=== PATIENT | female | born 1955 | race African-American/Black ===

== ENCOUNTER 2022-03-20 14:53 | Emergency (ER) | payer BC, SELFPAY ==
[2022-03-20 14:57] VITALS: BP 199/107; PULSE 74; RESP 18; O2SAT 98; BMI 34.1
--- NOTE | 2022-03-20 15:04 | ECG_ITS ---
Test Reason : hypertention Blood Pressure : / mmHG Vent. Rate : 073 BPM Atrial Rate : 073 BPM P-R Int : 158 ms QRS Dur : 104 ms QT Int : 418 ms P-R-T Axes : 066 -11 027 degrees QTc Int : 460 ms Normal sinus rhythm Incomplete right bundle branch block Borderline ECG No previous ECGs available Referred By: Generic ED Physician Electronically Signed By:DWIGHT SOUZA
[2022-03-20 15:15] LABS: MANUAL DIFF FLAG NO
[2022-03-20 15:19] LABS: Basophils Absolute Auto 0.1 X10*3/uL (0.0-0.2); Basophils Percent Auto 0.8 % (0-2); Eosinophils Absolute Auto 0.1 X10*3/uL (0.0-0.4); Eosinophils Percent Auto 1.3 % (0-4); Hematocrit 40.3 % (37.0-47.0); Hemoglobin 13.4 g/dl (12.0-16.0); Imm Gran Abs Auto 0.02 X10*3/uL (0.00-0.03); Imm Gran Pct Auto 0.3 % (0.0-0.4); Lymphocytes Absolute Auto 2.7 X10*3/uL (1.2-4.9); Lymphocytes Percent Auto 43.1 % (20-40); Mean Corpuscular HGB Conc 33.3 g/dl (31.0-35.0); Mean Corpuscular Hemoglobin 27.7 pg (27.0-33.0); Mean Corpuscular Volume 83.4 fL (80.0-98.0); Mean Platelet Volume 10.1 fL (9.4-12.3); Monocytes Absolute Auto 0.5 X10*3/uL (0.1-1.2); Neutrophils Absolute Auto 2.9 x10*3/uL (2.0-8.3); Neutrophils Percent Auto 46.5 % (45-73); Platelet Count 249 X10*3/uL (160-400); Red Blood Count 4.83 X10*6/uL (4.20-5.50); Red Cell Distribution Width 14.2 % (11.0-16.0); White Blood Count 6.2 X10*3/uL (4.8-10.8)
[2022-03-20 15:31] LABS: Anion Gap 14 (12-20); Blood Urea Nitrogen 15 mg/dL (9-16); Calcium 9.8 mg/dL (8.4-10.2); Carbon Dioxide 29 mmol/L (22-29); Chloride 103 mmol/L (96-108); Creatinine Clr Calc Pharmacy 69.6; Estimated Glomerular Filt Rate 58; Glucose Random 114 mg/dL (60-115); Potassium 4.1 mmol/L (3.3-5.1); Sodium 142 mmol/L (135-145)
[2022-03-20 20:51] VITALS: BP 189/89; PULSE 59; RESP 16; O2SAT 98
--- NOTE | 2022-03-20 23:03 | ED.GENADULT ---
HPI - General Adult General Chief complaint: General Medical Stated complaint: possible stroke, High bp Time Seen by Provider: 03/20/22 16:48 History of Present Illness HPI narrative: Patient is a 67-year-old female presented today with having history of hypertension. Patient baseline is on lisinopril 10 mg. Had her blood pressure checked yesterday. Noted to have an elevated blood pressure. Patient was given hydrochlorothiazide 25 mg. Took 1 dose of the medication last night. Subsequently had some nausea vomiting. This symptom has since resolved. Patient sent in for further evaluation because of the elevated blood pressure. Patient denies any fever chills. No focal weakness. No nausea no vomiting no headache today. No symptoms. Patient was noted to have elevated blood pressure. No chest pain or shortness of breath. No dizziness. Related Data Allergies Allergy/AdvReac Type Severity Reaction Status Date / Time latex Allergy Itching Verified 03/20/22 15:03 Review of Systems Review of Systems: No coughing or congestion or upper respiratory symptoms No chest pain All system reviewed otherwise negative [facility] Past Medical History Attestation statement: The following information was validated with the patient. Social History Social History Advance Directives: No Physical Exam ED Vital Signs: Vital Signs - 24 hr 03/20/22 14:57 03/20/22 20:51 03/21/22 00:00 Pulse Rate 74 59 Respiratory Rate 18 16 Blood Pressure 199/107 H 189/89 H 201/93 H Pulse Oximetry 98 98 Oxygen Delivery Method Room Air Room Air 03/21/22 00:05 Pulse Rate Respiratory Rate Blood Pressure 174/71 H Pulse Oximetry Oxygen Delivery Method BMI result Body Mass Index 34.1 Appearance: Alert. Oriented X3. No acute distress. Eyes: Pupils equal, round and reactive to light. ENT: Pharynx normal. Neck: Normal inspection. Neck supple. No lymph nodes noted. No crepitus CVS: Normal heart rate and rhythm. Pulses normal. Normal S1 and S2 Respiratory: No respiratory distress. Breath sounds normal. No Wheezing. No rales Abdomen: Soft and nontender. No rigidity. No distention. good BS x4 Skin: Skin warm and dry. Normal skin color. Normal skin turgor. Extremities: No lower extremity edema. Neurovascular intact to all extremities. No Lacerations. No Rash Neuro: Oriented X 3. No motor deficit. No sensory deficit. Moving all extermities. No slurred speech Medical Decision Making MDM Narrative Medical decision making narrative: EKG showed a sinus pattern heart rate was 80 MI QRS QT within normal limits there is no acute ST segment elevation. Electrolytes are unremarkable. Patient's CBCs normal. Blood pressure is initially 180/90. Patient's did not take her blood pressure medication today. She took a 10 mg tablet of lisinopril and 25 mg of hydrochlorothiazide in front of me. Will monitor her blood pressure for the next hour. Will have patient closely follow-up. Blood pressure improved with home medication. Patient in stable condition. Will discharge home. Close follow-up advised. Lab Data Result diagrams: 03/20/22 15:10 03/20/22 15:10 Labs: Lab Results 03/20/22 03/20/22 Range/Units 15:10 15:10 WBC 6.2 (4.8-10.8) X10*3/uL RBC 4.83 (4.20-5.50) X10*6/uL Hgb 13.4 (12.0-16.0) g/dl Hct 40.3 (37.0-47.0) % MCV 83.4 (80.0-98.0) fL MCH 27.7 (27.0-33.0) pg MCHC 33.3 (31.0-35.0) g/dl RDW 14.2 (11.0-16.0) % Plt Count 249 (160-400) X10*3/uL MPV 10.1 (9.4-12.3) fL Immature Gran % (Auto) 0.3 (0.0-0.4) % Neut % (Auto) 46.5 (45-73) % Lymph % (Auto) 43.1 H (20-40) % [place] % (Auto) 8.0 (2-11) % Eos % (Auto) 1.3 (0-4) % Baso % (Auto) 0.8 (0-2) % Lymph # (Auto) 2.7 (1.2-4.9) X10*3/uL [place] # (Auto) 0.5 (0.1-1.2) X10*3/uL Eos # (Auto) 0.1 (0.0-0.4) X10*3/uL Baso # (Auto) 0.1 (0.0-0.2) X10*3/uL Abs Immat Gran (auto) 0.02 (0.00-0.03) X10*3/uL Absolute Neuts (auto) 2.9 (2.0-8.3) x10*3/uL Absolute Nucleated RBC 0.000 (0.0-0.012) X10*3/uL Nucleated RBC % (auto) 0.0 (0.0-0.2) /100WBC Sodium 142 (135-145) mmol/L Potassium 4.1 (3.3-5.1) mmol/L Chloride 103 (96-108) mmol/L Carbon Dioxide 29 (22-29) mmol/L Anion Gap 14 (12-20) BUN 15 (9-16) mg/dL Creatinine 0.96 (0.5-1.4) mg/dL Estim Creat Clear Calc 69.6 Estimated GFR 58 Random Glucose 114 (60-115) mg/dL Calcium 9.8 (8.4-10.2) mg/dL Discharge Plan Discharge Clinical Impression: Hypertension Patient Disposition: Home, Self-Care Instructions: Hypertension (ED) Referrals: Physician,Unknown J [Primary Care Provider] - (Your blood pressure was extremely elevated today. Please closely follow-up with your doctor tomorrow for repeat blood pressure check.)
[2022-03-21 00:05] VITALS: BP 174/71
== END 2022-03-21 00:12 | disposition home or self-care (01) ==
PROVIDERS: Emergency Provider Emergency Medicine Emergency Medical Services
DX: R42 Dizziness and giddiness (principal); I10 Essential (primary) hypertension; R11.2 Nausea with vomiting, unspecified; Z79.899 Other long term (current) drug therapy
CPT/HCPCS: 36415; 80048; 85025; 93005; 99283; 99284

== ENCOUNTER 2023-04-01 01:27 | Emergency (ER) | payer BC, SELFPAY ==
--- NOTE | 2023-04-01 | ECG_ITS ---
Test Reason : DIZZINES/TACHY Blood Pressure : / mmHG Vent. Rate : 131 BPM Atrial Rate : 141 BPM P-R Int : 000 ms QRS Dur : 092 ms QT Int : 312 ms P-R-T Axes : 000 -04 029 degrees QTc Int : 460 ms Sinus tachycardia with 2nd degree A-V block (Mobitz I) Incomplete right bundle branch block Inferior infarct , age undetermined Anterior infarct , age undetermined Abnormal ECG When compared with ECG of 20-MAR-2022 15:04, Sinus rhythm is now with 2nd degree A-V block (Mobitz I) Vent. rate has increased BY 58 BPM Anterior infarct is now Present Inferior infarct is now Present Referred By: Generic ED Physician Electronically Signed By:DWIGHT SOUZA
--- NOTE | ~2023-04-01 | XR_ITS ---
EXAMINATION: XR CHEST CLINICAL INFORMATION: Shortness of breath, rule out CHF versus pneumonia COMPARISON: None available. TECHNIQUE: Frontal view of the chest was obtained. FINDINGS: Lungs appear mildly hypoinflated. No focal consolidation is seen. No evidence of pneumothorax, significant pleural effusion, or overt pulmonary edema. Cardiac silhouette appears somewhat prominent though may be accentuated by low lung volumes. Degenerative changes are noted in the spine. XR/XR chest 1V IMPRESSION: No acute cardiopulmonary findings.
[2023-04-01 01:31] VITALS: BP 108/74; PULSE 133; RESP 16; TEMP 36.3; O2SAT 97; BMI 36.3
[2023-04-01 01:57] LABS: Basophils Absolute Auto 0.1 X10*3/uL (0.0-0.2); Eosinophils Absolute Auto 0.3 X10*3/uL (0.0-0.4); Eosinophils Percent Auto 5.2 % (0-4); Hematocrit 38.9 % (37.0-47.0); Imm Gran Abs Auto 0.01 X10*3/uL (0.00-0.03); Imm Gran Pct Auto 0.2 % (0.0-0.4); Lymphocytes Absolute Auto 2.7 X10*3/uL (1.2-4.9); Lymphocytes Percent Auto 46.4 % (20-40); MANUAL DIFF FLAG NO; Mean Corpuscular HGB Conc 33.4 g/dl (31.0-35.0); Mean Corpuscular Volume 83.7 fL (80.0-98.0); Mean Platelet Volume 9.8 fL (9.4-12.3); Monocytes Absolute Auto 0.6 X10*3/uL (0.1-1.2); Monocytes Percent Auto 10.2 % (2-11); Neutrophils Absolute Auto 2.2 x10*3/uL (2.0-8.3); Platelet Count 264 X10*3/uL (160-400); Red Blood Count 4.65 X10*6/uL (4.20-5.50); Red Cell Distribution Width 14.5 % (11.0-16.0); White Blood Count 5.8 X10*3/uL (4.8-10.8)
[2023-04-01 01:58] LABS: Appearance Urine Clear; Color Urine Yellow; Glucose Urine UA Negative (Negative); Leukocyte Esterase Urine Negative (Negative); Nitrite Urine Negative (Negative); PH 5.5 (5.0-9.0); UMIC TRIGGER UACC YES; Urine Blood Small (1+) (Negative); Urine Ketones Negative (Negative); Urine Protein Negative (Neg-Trace)
[2023-04-01 01:59] VITALS: BP 112/89; PULSE 119; RESP 19; TEMP 36.6; O2SAT 95
[2023-04-01 02:02] LABS: INTERNATIONAL NORM RATIO 0.9 (0.9-1.1); Prothrombin Time 11.3 SEC (11.1-13.3)
--- NOTE | 2023-04-01 02:05 | ED_ITS ---
HPI - Dizziness General Chief Complaint: Dizziness Stated Complaint: Palpitations/Dizziness Time Seen by Provider: 04/01/23 01:49 Source: patient Mode of arrival: ambulatory Limitations: no limitations History of Present Illness HPI Narrative: 68-year-old female who presents emergency department for evaluation of lightheadedness, dizziness and palpitations. 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 She then had a sudden onset of feeling lightheaded his she was going to pass out. She needed to sit down. She then felt a pounding sensation in her neck. She was concerned about her symptoms so she drove to the emergency department for evaluation. Patient states that she has had palpitations in the past but never severe symptoms like today symptoms which made her feel like she was going to pass out. She complained of rhinorrhea, occasional cough productive of thick mucus and mild dyspnea on exertion over the past 1-2 days. She denied fever, chills, sore throat nausea, vomiting, diarrhea, frequency, dysuria, black stools, dark stools, myalgias or arthralgias. She states that she saw her doctor yesterday, she told her doctor about pain that she had in her right leg 2 months prior, this pain lasted 3 days and then resolved. Related Data Allergies Allergy/AdvReac Type Severity Reaction Status Date / Time latex Allergy Itching Verified 03/20/22 15:03 Review of Systems 2 Review of Systems: Yes all other systems are reviewed and are negative [facility] Past Medical History [facility] Narrative: Past medical history hypertension, asthma. Surgical history: None. Social history: She works at the post office. She denies tobacco, alcohol and drug use. Social History Social History Alcohol intake: never Smoked in Last 30 Days: No Use of substances other than those prescribed or required for medical reasons: No Advance Directives: No Advance Directives Information Provided: No Physical Exam 2 Vital Signs: Vital Signs: Last Vital Signs Temp 97.9 F 04/01/23 01:59 Pulse 119 H 04/01/23 01:59 Resp 19 04/01/23 01:59 BP 112/89 04/01/23 01:59 Pulse Ox 95 04/01/23 01:59 O2 Del Method Room Air 04/01/23 01:59 BMI result Body Mass Index 36.3 Vital signs revealed an elevated heart rate varying from 119-140 beats per minute Exam: General: Awake, alert in no distress Head: Normocephalic, atraumatic EENT: PERRL, Lids normal, sclera normal, conjunctiva normal, nose normal , ears normal, throat without erythema or exudates Neck: Supple, no adenopathy, trachea midline and nontender Lung: breath sounds symmetric, no wheezing, rales or rhonchi Chest: symmetric movement, nontender Heart: Rapid rate and regular with occasionally irregular rhythm, normal S1, S2 no murmurs or rubs Abdomen: soft, non-tender, nondistended, normal bowel sounds Back: no vertebral tenderness, no CVAT Extremities: no deformities, moves all extremities symmetrically Skin: no rashes, no lesion, normal color and warmth Neuro: Awake, alert, oriented, normal speech, cranial nerves intact, moves all extremities symmetrically Psych: Pleasant, cooperative Medications Administered Discontinued Medications Generic Name Dose Route Start Last Admin Trade Name Freq PRN Reason Stop Dose Admin Diltiazem HCl 20 mg 04/01/23 02:15 04/01/23 02:17 Diltiazem Hcl 50 Mg/10 Ml Vial IVPUSH 04/01/23 02:16 20 mg STAT STA Administration Sodium Chloride 1,000 mls @ 999 mls/hr 04/01/23 02:00 04/01/23 02:16 Ns IV 04/01/23 03:00 999 mls/hr .Q1H1M STA Administration Medical Decision Making Medical Decision Making [facility] Narrative: 68-year-old female history of hypertension and asthma who presents emergency department for evaluation of dizziness/near syncope with palpitations. Symptoms came on suddenly while she was at work. On presentation, patient was found to have a tachycardia 120-140 beats per minute. Her rhythm was mainly regular with occasional irregular pattern. Following evaluation was ordered: CBC, BMP, liver panel, lipase, PT/INR, TSH with reflex T4, BNP, chest x-ray, EKG. I ordered diltiazem 20 mg IV push 0358: The patient's laboratory evaluation was unremarkable. The patient did convert to normal sinus rhythm after receiving IV diltiazem. I will start the patient on aspirin 81 mg once a day Patient will be referred to her PCP for follow-up to Cardiology and I also gave her our on-call cardiology number for re-evaluation and further workup of atrial fibrillator in the event that she cannot be referred to Cardiology through her PCP. Differential Diagnosis Differential Diagnoses: The differential diagnosis associated with the presentation includes Differential diagnosis includes was not limited to myocardial infarction, myocardial ischemia, palpitations, sinus tachycardia , atrial flutter, atrial fibrillator, hyperthyroidism, electrolyte abnormalities, any Admission/Observation Consideration of admission/observation: Escalation of care including admission/observation considered Lab Data MDM Lab Attestation statement: I reviewed the patient's lab results. My independent interpretation patient's laboratory evaluation as follows: CBC was normal . PT/INR PTT were normal. BUN was elevated with a normal creatinine of 1.13. Urinalysis revealed 1+ blood, microscopic revealed 0-2 RBCs, 0-5 WBCs, no bacteria. Urine tox screen was normal. TSH was normal at 1.70 point. BMP was normal 04/01/23 01:52 04/01/23 01:52 Labs: Lab Results 04/01/23 Range/Units 01:52 WBC 5.8 (4.8-10.8) X10*3/uL RBC 4.65 (4.20-5.50) X10*6/uL Hgb 13.0 (12.0-16.0) g/dl Hct 38.9 (37.0-47.0) % MCV 83.7 (80.0-98.0) fL MCH 28.0 (27.0-33.0) pg MCHC 33.4 (31.0-35.0) g/dl RDW 14.5 (11.0-16.0) % Plt Count 264 (160-400) X10*3/uL MPV 9.8 (9.4-12.3) fL Immature Gran % (Auto) 0.2 (0.0-0.4) % Neut % (Auto) 37.0 L (45-73) % Lymph % (Auto) 46.4 H (20-40) % [place] % (Auto) 10.2 (2-11) % Eos % (Auto) 5.2 H (0-4) % Baso % (Auto) 1.0 (0-2) % Lymph # (Auto) 2.7 (1.2-4.9) X10*3/uL [place] # (Auto) 0.6 (0.1-1.2) X10*3/uL Eos # (Auto) 0.3 (0.0-0.4) X10*3/uL Baso # (Auto) 0.1 (0.0-0.2) X10*3/uL Abs Immat Gran (auto) 0.01 (0.00-0.03) X10*3/uL Absolute Neuts (auto) 2.2 (2.0-8.3) x10*3/uL Absolute Nucleated RBC 0.000 (0.0-0.012) X10*3/uL Nucleated RBC % (auto) 0.0 (0.0-0.2) /100WBC PT 11.3 (11.1-13.3) SEC INR 0.9 (0.9-1.1) APTT 35.3 (26.0-36.4) SEC Sodium 141 (135-145) mmol/L Potassium 3.8 (3.3-5.1) mmol/L Chloride 104 (96-108) mmol/L Carbon Dioxide 25 (22-29) mmol/L Anion Gap 16 (12-20) BUN 29 H (9-16) mg/dL Creatinine 1.13 (0.5-1.4) mg/dL Estim Creat Clear Calc 60.2 Estimated GFR 48 Random Glucose 102 (60-115) mg/dL Calcium 9.6 (8.4-10.2) mg/dL Total Bilirubin 0.3 (0.0-1.0) mg/dL Direct Bilirubin 0.1 (0.0-0.5) mg/dL AST 28 (5-31) U/L ALT 21 (0-31) U/L Alkaline Phosphatase 49 (39-117) U/L Troponin I High Sens 7.8 (<3.5-17.0) ng/L B-Natriuretic Peptide 11 (<100) pg/mL Total Protein 8.0 (6.5-8.0) g/dL Albumin 4.3 (3.5-5.0) g/dL Lipase 23 (8-78) U/L TSH 1.70 (0.32-4.0) uIU/mL Urine Color Yellow Urine Appearance Clear Urine pH 5.5 (5.0-9.0) Ur Specific [place] 1.010 (1.005-1.025) Urine Protein Negative (Neg-Trace) mg/dL Urine Glucose (UA) Negative (Negative) mg/dL Urine Ketones Negative (Negative) mg/dL Urine Blood Small (1+) H (Negative) Urine Nitrite Negative (Negative) Ur Leukocyte Esterase Negative (Negative) Urine RBC 0-2 (0-2) /HPF Urine WBC 0-5 (0-5) /HPF Ur Squamous Epith Cells 0-2 (0-2) /HPF Urine Bacteria None Seen (None Seen) Hyaline Casts 0-2 (0-2) /LPF Urine Opiates Screen Not Detected (Not Detect) Urine Fentanyl Screen Not Detected (Not Detect) Ur Barbiturates Screen Not Detected (Not Detect) Ur Phencyclidine Scrn Not Detected (Not Detect) Ur Amphetamines Screen Not Detected (Not Detect) U Benzodiazepines Scrn Not Detected (Not Detect) Urine Cocaine Screen Not Detected (Not Detect) U Marijuana (THC) Screen Not Detected (Not Detect) Independent Interpretation I performed an independent interpretation of an: EKG and Plain X-Ray Interpretation: My independent interpretation of the patient's 12 EKG done at 0143: Atrial fibrillation with a ventricular rate of 131, normal QRS and QTC interval, no ST segment elevation, no ST segment depression, incomplete right bundle-branch block,, nonspecific T-wave abnormalities. Compared to EKG dated 03/20/2022,at that time she was in a sinus rhythm with a rate of 73, incomplete right bundle- branch block was present on the previous EKG. My independent interpretation of the patient's 12 EKG done at 02:44 hours is as follows: Normal sinus rhythm with a first-degree AV block with a IL interval of 260 milliseconds, prolonged QRS of 106 milliseconds, incomplete right bundle- branch block, Q-wave in lead 3, poor R-wave progression, no ST segment elevation, no ST segment depression, no significant T-wave abnormalities, no PACs or PVCs. My independent interpretation patient's one-view chest x-ray is as follows: No acute infiltrate, no pulmonary edema Radiology Impression Discussion of test interpretation with radiology: I have reviewed the radiologist's reading. Radiologist Impression: XR chest 1V IMPRESSION: No acute cardiopulmonary findings. Dictated By: Jamal De La Cruz MD Critical Care Time Critical Care Time Critical Care Time: Yes Total Critical Care Time: 35 Attestation: Critical Care: The patient was critically ill with a high probability of imminent or life threatening deterioration. I spent greater than 30 minutes of discontinuous time evaluating the patient,delivering critical care at the bedside, secondary to received IV diltiazem for atrial fibrillation with RVR, required cardiac and O2 saturation monitoring . Critical care time does not include time spent performing separately billable procedures or teaching. Total time spent performing critical care was 35 minutes. Discharge Plan Discharge Clinical Impression: Near syncope, Paroxysmal atrial fibrillation with RVR Patient Disposition: Home, Self-Care Instructions: A-fib (Atrial Fibrillation) (ED) Additional Instructions: Your initial EKG was consistent with atrial fibrillation with a rapid ventricular rate 120-140 beats per minute. Your treated with diltiazem times IV and shortly after receiving this medicine you spontaneously converted back to a sinus rhythm. Your blood work was normal including a normal TSH (thyroid function test), normal PT/INR, PTT non elevated troponin and normal BNP. Your chest x-ray was normal pain. Take 1 enteric-coated 81 mg aspirin per day. Call your primary care doctor for referral to a litigation legal secretary for further evaluation of your atrial fibrillation. If your doctor cannot refer you to a litigation legal secretary and call our on-call litigation legal secretary Dr. Shrestha for evaluation of your atrial fibrillation Follow-up with your doctor in 2 days. Please return to the emergency department if your symptoms get worse or if you develop any symptoms that are concerning to you. Referrals: Jack Shrestha MD [Physician] - 1 week (New onset atrial fibrillator with RVR, spontaneously converted after receiving diltiazem)
[2023-04-01 02:11] LABS: Bacteria Urine None Seen (None Seen); Hyaline Casts Urine 0-2 /LPF (0-2); Partial Thromboplastin Time 35.3 SEC (26.0-36.4); RBC Urine 0-2 /HPF (0-2); Squamous Epithelial Cell Urine 0-2 /HPF (0-2); WBC Urine 0-5 /HPF (0-5)
--- NOTE | 2023-04-01 02:14 | ECG_ITS ---
Test Reason : TACHY Blood Pressure : / mmHG Vent. Rate : 069 BPM Atrial Rate : 069 BPM P-R Int : 216 ms QRS Dur : 106 ms QT Int : 408 ms P-R-T Axes : -08 -07 007 degrees QTc Int : 437 ms Sinus rhythm with 1st degree A-V block Incomplete right bundle branch block Inferior infarct (cited on or before 01-APR-2023) Anterior infarct (cited on or before 01-APR-2023) Abnormal ECG When compared with ECG of 01-APR-2023 01:43, Sinus rhythm is no longer with 2nd degree A-V block (Mobitz I) Vent. rate has decreased BY 62 BPM Referred By: Didier Falcon Electronically Signed By:DWIGHT SOUZA
[2023-04-01 02:16] LABS: Troponin-I High Sensitivity 7.8 ng/L (<3.5-17.0)
[2023-04-01] MEDS: 0.9 % Sodium Chloride 1,000 ML 999 ML IV (02:16)
[2023-04-01] MEDS: dilTIAZem HCL 50 MG/10 ML VIAL 20 MG IVPUSH (02:17)
[2023-04-01 02:18] LABS: Alanine Aminotransferase 21 U/L (0-31); Albumin Level 4.3 g/dL (3.5-5.0); Alkaline Phosphatase 49 U/L (39-117); Anion Gap 16 (12-20); Aspartate Amino Transferase 28 U/L (5-31); Bilirubin Direct 0.1 mg/dL (0.0-0.5); Bilirubin Total 0.3 mg/dL (0.0-1.0); Blood Urea Nitrogen 29 mg/dL (9-16); Calcium 9.6 mg/dL (8.4-10.2); Carbon Dioxide 25 mmol/L (22-29); Chloride 104 mmol/L (96-108); Creatinine Clr Calc Pharmacy 60.2; Estimated Glomerular Filt Rate 48; Glucose Random 102 mg/dL (60-115); Lipase 23 U/L (8-78); Potassium 3.8 mmol/L (3.3-5.1); Sodium 141 mmol/L (135-145)
[2023-04-01 02:21] LABS: Amphetamine Screen Urine Not Detected (Not Detect); Barbiturates, Urine Not Detected (Not Detect); Benzodiazepines Screen Urine Not Detected (Not Detect); Cannabinoid Screen Urine Not Detected (Not Detect); Cocaine Screen Urine Not Detected (Not Detect); Fentanyl, urine Not Detected (Not Detect); Opiate Screen Urine Not Detected (Not Detect); Phencyclidine Screen Urine Not Detected (Not Detect)
[2023-04-01 02:29] LABS: B Type Natriuretic Peptide 11 pg/mL (<100)
[2023-04-01 04:15] VITALS: BP 110/71; PULSE 67; RESP 19; TEMP 36.6; O2SAT 99
[2023-04-01] MEDS: Aspirin 81 MG TAB.CHEW PO (04:55)
== END 2023-04-01 06:25 | disposition home or self-care (01) ==
PROVIDERS: Emergency Provider Emergency Medicine Emergency Medical Services; PCP Internal Medicine
DX: R55 Syncope and collapse (principal); I48.0 Paroxysmal atrial fibrillation; R42 Dizziness and giddiness; R00.2 Palpitations; R05.9 Cough, unspecified; R06.02 Shortness of breath; Z79.899 Other long term (current) drug therapy
CPT/HCPCS: 36415; 71045; 80048; 80076; 80307; 81001; 81003; 83690; 83880; 84443; 84484; 85025; 85610; 85730; 93005; 96361; 96374; 96376; 99284